=== PATIENT | female | born 1995 | race Two or more races ===

== ENCOUNTER 2022-10-02 04:14 | Emergency (ER) | payer OTHER ==
[~2022-10-02] VITALS: Ht 157.5 cm; Wt 47.6 kg
[2022-10-02] MEDS ORDERED: BENADRYL25 MG PO (05:31)
[2022-10-02] MEDS ORDERED: MEDROL8 MG PO (05:31)
== END 2022-10-02 06:21 ==
LOC: ER 04:14
DX: T78.40XA Allergy, unspecified, initial encounter (principal)